=== PATIENT | female | born 1950 | race African-American/Black ===

== ENCOUNTER 2023-09-27 13:44 | Emergency (ER) | payer OTHER ==
[~2023-09-27] VITALS: Ht 165.1 cm; Wt 106.9 kg
[2023-09-27] MEDS: ONDANSETRON ODT 4 MG TAB PO ONE (16:47)
[2023-09-27] MEDS: MEPERIDINE HCL (50 MG/ML) 1 ML VIAL IM ONE (16:54)
[2023-09-27] MEDS ORDERED: GABA-339 PO (17:12)
[2023-09-27 17:25] VITALS: BP 163/97; PULSE 73; RESP 18; TEMP 98; O2SAT 98
== END 2023-09-27 17:31 | disposition home or self-care (01) ==
LOC: ER 13:44
DX: G89.29 Other chronic pain (principal); M54.50 Low back pain, unspecified
CPT/HCPCS: 72100; 96372; 99283; J2175; Q0162